=== PATIENT | female | born 1970 | race Caucasian/White ===

== ENCOUNTER 2017-02-26 05:33 | Outpatient (CLI) | payer BC ==
[~2017-02-26] VITALS: Ht 163.8 cm; Wt 73.9 kg
[2017-02-26] MEDS ORDERED: BIOT800T PO (10:10)
[2017-02-26] MEDS ORDERED: MULT-324 PO (10:10)
[2017-02-26] MEDS ORDERED: MAGN250T2 PO (10:10)
[2017-02-26] MEDS ORDERED: MELA1TAB15 PO (10:10)
[2017-02-26] MEDS ORDERED: METH500T PO (10:10)
[2017-02-26] MEDS ORDERED: MELO15TA39 PO (10:10)
[2017-02-26] MEDS ORDERED: CHOL100045 PO (10:10)
[2017-02-26] MEDS ORDERED: PRD20T PO (10:10)
== END 2017-02-26 10:19 ==
LOC: PREOP 05:33 → EDUNIT# 10:00 → PREOP 10:19
PROVIDERS: ATTEND Otolaryngology Otolaryngology/Facial Plastic Surgery
DX: Z01.818 Encounter for other preprocedural examination (principal); J39.2 Other diseases of pharynx

== ENCOUNTER 2017-03-01 06:16 | Day surgery (SDC) | payer BC ==
[~2017-03-01] VITALS: Ht 163.8 cm; Wt 73.9 kg
[~2017-03-01 06:16] MED LIST: BIOT800T PO; CHOL100045 PO; MAGN250T2 PO; MELA1TAB15 PO; MELO15TA39 PO; METH500T PO; MULT-324 PO; PRD20T PO
[2017-03-01] MEDS: LACTATED RINGERS 1,000 ML IV PRN ×2 (07:51→10:48)
[2017-03-01 08:13] VITALS: BP 114/86
[2017-03-01] MEDS ORDERED: LIDOCAINE/EPI 2% 1:100,00 (XYLOCAINE) 20 ML VIAL ONE (08:50)
[2017-03-01] MEDS ORDERED: fentaNYL INJECTION 100 MCG/2 ML AMP ONE (08:58)
[2017-03-01] MEDS ORDERED: MIDAZOLAM 2 MG/2 ML (VERSED) VIAL ONE (08:58)
[2017-03-01] MEDS ORDERED: LIDOCAINE PF 2% 5 ML (XYLOCAINE) VIAL ONE (08:58)
[2017-03-01] MEDS ORDERED: SEVOFLURANE (ULTANE) 15 ML INHAL SOLN ONE (08:58)
[2017-03-01] MEDS ORDERED: LACTATED RINGERS 1,000 ML IV ONE (08:58)
[2017-03-01] MEDS ORDERED: ONDANSETRON 4 MG/2 ML (SDV) Z0FRAN ONE (08:58)
[2017-03-01] MEDS ORDERED: proPOfol 200 MG/20 ML (DIPRIVAN) VIAL IV ONE (08:58)
[2017-03-01] MEDS ORDERED: DEXAMETHASONE 10 MG/ML (DECADRON) 1 ML VIAL ONE ×2 (08:58→10:19)
--- NOTE | 2017-03-01 09:35 | Progress Note-Pre Operative ---
Pre-Operative Progress Note H&P Reviewed The H&P was reviewed, patient examined and no changes noted. Date Seen by Provider: Mar 01, 2017 Time Seen by Provider: :15 Date H&P Reviewed: Mar 01, 2017 Time H&P Reviewed: :15 Pre-Operative Diagnosis: nasopharyngeal cyst LON NULL MD Mar 01, 2017 9:35 am
[2017-03-01] MEDS ORDERED: ROCURONIUM 50 MG/5 ML (ZEMURON) VIAL IV ONE (09:42)
[2017-03-01] MEDS ORDERED: GLYCOPYRROLATE 0.2 MG/ML (ROBINUL) 2 ML VIAL ONE (10:09)
[2017-03-01] MEDS ORDERED: NEOSTIGMINE (BLOXIVERZ ) 1 MG/1ML 10 ML VIAL ONE (10:09)
[2017-03-01] MEDS ORDERED: NS IV 1000 ML 1,000 ML IV SCH (10:17)
--- NOTE | 2017-03-01 10:17 | Progress Note-Post Operative ---
Post-Operative Progess Note Surgeon (s)/Payroll Examiner (s) Surgeon LON NULL MD Payroll Examiner n/a Pre-Operative Diagnosis nasopharyngeal cyst Post-Operative Diagnosis same Post-Op Procedure Note Date of Procedure: Mar 01, 2017 Name of Procedure Performed: Excision of Left Nasopharyngeal Mass/Cyst Description & Findings Description and Findings: n/a Anesthesia Type get Estimated Blood Loss minimal Packing none. Specimen(s) collected/removed left nasopharyngeal c yst LON NULL MD Mar 01, 2017 10:17 am
[2017-03-01] MEDS ORDERED: APAP 325 MG/10.15 ML LIQ (TYLENOL) UDC PO PRN (10:30)
[2017-03-01] MEDS ORDERED: HYDROcodone/APAP 5 MG/325 MG (LORTAB) TAB PO PRN (10:30)
[2017-03-01] MEDS ORDERED: fentaNYL INJECTION 100 MCG/2 ML AMP IVP PRN (10:45)
[2017-03-01] MEDS ORDERED: ONDANSETRON 4 MG/2 ML (SDV) Z0FRAN IVP PRN (10:45)
[2017-03-01 11:15] VITALS: BP 98/67
[2017-03-01] MEDS ORDERED: HYDR-3812 PO (11:22)
[2017-03-01 11:45] VITALS: BP 105/79
[2017-03-01 12:15] VITALS: BP 111/84
== END 2017-03-01 12:17 | disposition home or self-care (01) ==
LOC: SDC 06:16
PROVIDERS: ATTEND Otolaryngology Otolaryngology/Facial Plastic Surgery
DX: J39.2 Other diseases of pharynx (principal); G62.9 Polyneuropathy, unspecified; Z87.891 Personal history of nicotine dependence; Z86.711 Personal history of pulmonary embolism; Z86.718 Personal history of other venous thrombosis and embolism; Z79.899 Other long term (current) drug therapy
CPT/HCPCS: 84703; 87081; 88305